=== PATIENT | female | born 1995 ===

== ENCOUNTER 2022-05-08 04:03 | Day surgery (SDC) | payer BC ==
[2022-05-07 14:09] VITALS: BMI 23.3
[2022-05-08] MEDS ORDERED: LIDOCAINE HCL 1%, 10 MG/ML (20ML VIAL) ONE (08:31)
[2022-05-08] MEDS ORDERED: FENTANYL CITRATE/PF 50 MCG/ML VIAL ONE ×2 (08:52→09:33)
[2022-05-08] MEDS ORDERED: PROPOFOL 20 ML ONE (08:52)
[2022-05-08] MEDS ORDERED: MIDAZOLAM HCL 2 MG/2 ML SINGLE DOSE VIAL ONE (08:53)
[2022-05-08] MEDS ORDERED: LIDOCAINE HCL/PF 2% SDV 5ML VIAL ONE (08:54)
[2022-05-08] MEDS ORDERED: oxyCODONE HCL 5 MG TABLET PO PRN (09:12)
[2022-05-08] MEDS ORDERED: PROMETHAZINE HCL 25 MG/1 ML VIAL IVPUSH PRN (09:12)
[2022-05-08] MEDS ORDERED: ONDANSETRON 4 MG/2 ML VIAL IVPUSH PRN (09:12)
[2022-05-08] MEDS ORDERED: LACTATED RINGERS SOLUTION 1,000 ML IV SCH (09:15)
[2022-05-08] MEDS ORDERED: KETOROLAC TROMETHAMINE 30 MG/1 ML VIAL ONE (09:33)
[2022-05-08] MEDS ORDERED: LIDOCAINE HCL 1%, 10 MG/ML (20ML VIAL) INF ONE (09:38)
[2022-05-08 11:37] VITALS: RESP 20; TEMP 98.2
[2022-05-08 12:30] VITALS: BP 109/61; PULSE 76
== END 2022-05-08 12:26 | disposition home or self-care (01) ==
LOC: JASU-SURG 04:03
PROVIDERS: ATTEND Surgery
PROC: 0HBU0ZX Excision of Left Breast, Open Approach, Diagnostic (ICD-10-PCS; principal; 2022-05-08 09:30)
DX: D24.2 Benign neoplasm of left breast (principal)
CPT/HCPCS: 81025; 88307-TC; 94760